=== PATIENT | female | born 1975 | race Two or more races ===

== ENCOUNTER 2016-11-07 05:00 | Inpatient (IN) | payer MEDICAID ==
[~2016-11-07] VITALS: Ht 160 cm; Wt 81.2 kg
[2016-11-07 05:31] VITALS: BP 138/72; Ht 160 cm; Wt 81.2 kg
[2016-11-07 06:57] LABS: HEMATOCRIT 40.4 % (36.0-48.0); HEMOGLOBIN 13.8 g/dL (12-16); MCH 30.3 pg (26.0-34.0); MCHC 34.2 g/dL (31.0-37.0); MCV 88.6 fL (80.0-100.0); MEAN PLATELET VOLUME 13.5 fL (7.4-10.4); RBC 4.56 10x6/uL (4.00-5.40); RDW 15.8 % (11.5-14.5); WBC 10.3 10x3/uL (4.8-10.8)
[2016-11-07 19:13] VITALS: BP 123/79
--- NOTE | 2016-11-07 19:18 | NUR ---
PT RECEIVED TO MY CARE IN ROOM 1257. PT RESTING IN BED IN SEMI-FOWLERS POSITION, VISITING WITH FAMILY, IN NO ACUTE DISTRESS. PT IS A 41YO G3 NOW P3 WITH OF VIABLE FEMALE INFANT TODAY @ 1306. @ 40.5 WKS GESTATION. PT WITH SHOULDER DYSTOCIA RELIEVED WITH MCROBERT'S AND SUPRAPUBIC PRESSURE. PT WITH LACERATION AND REPAIR. AAOX3. HR REGULAR. LUNGS CTAB. ABDOMEN SOFT AND NON TENDER. BS ACTIVE TIMES 4. FUNDUS FIRM AND ML @ U/-1. LOCHIA RUBRA SCANT. PERINIUM APPEARS TO BE INTACT. SANGITA PAD AND PANTIES IN PLACE. PT DENIES DIFFICULTY VOIDING. STATES SHE HAS PASSED GAS SINCE BUT HAS NOT HAD A BM. NO SWELLING NOTED TO UPPER OR LOWER EXTREMITIES BILATERALLY. 18G SL IN LEFT HAND. FLUSHED WITH 5CC NS WITHOUT DIFFICULTY. NO REDNESS OR EDEMA NOTED TO SITE. PT C/O PAIN, RATES 5/10 IN BACK AND PERINIUM. REQUESTS MEDICATION. 1 TAB DEMEROL 50 PROVIDED TO PT AT THIS TIME. PT DENIES ANY FURTHER NEEDS AT THIS TIME. BED IN LOW POSITION, SIDE RAILS UP TIMES 2, CALL LIGHT AND PHONE IN REACH. FAMILY REMAINS AT PT BS TIMES 3 FOR SUPPORT AND ASSISTANCE. REMAINS AT PT BS FOR COUPLET CARE. WILL CONT TO MONITOR PT STATUS.
--- NOTE | 2016-11-07 19:59 | NUR ---
RN TO PT BS FOR ROUNDS. PT RESTING IN BED IN SEMI-FOWLERS POSITION IN NO ACUTE DISTRESS. PT STATES HER PAIN HAS IMPROVED TO 2/10. PT DENIES ANY FURTHER NEEDS AT THIS TIME. BED IN LOW POSITION, SIDE RAILS UP TIMES 2, CALL LIGHT AND PHONE IN REACH. FAMILY REMAINS AT PT BS TIMES 3 FOR SUPPORT AND ASSISTANCE. REMAINS AT PT BS FOR COUPLET CARE. WILL CONT TO MONITOR PT STATUS.
--- NOTE | 2016-11-07 20:53 | NUR ---
RN CALLED TO PT BS. PT REQUESTS FOOD TRAY AND COKE. PROVIDED. PT OFFERED 2100 DOSE OF MOM, REFUSED. STATES SHE IS NAUSEATED. PT DENIES ANY FURTHER NEEDS AT THIS TIME. BED IN LOW POSITION, SIDE RAILS UP TIMES 2, CALL LIGHT AND PHONE IN REACH. INFANT REMAINS AT PT BS FOR COUPLET CARE. WILL CONT TO MONITOR PT STATUS.
--- NOTE | 2016-11-07 22:40 | NUR ---
RN TO PT BS TO TAKE VISTORS TO BS. PT RESTING IN BED IN SEMI-FOWLERS POSITION IN NO ACUTE DISTRESS. PT DENIES ANY NEEDS AT THIS TIME. BED IN LOW POSITION, SIDE RAILS UP TIMES 2, CALL LIGHT AND PHONE IN REACH. INFANT REMAINS AT PT BS FOR COUPLET CARE. WILL CONT TO MONITOR PT STATUS.
--- NOTE | 2016-11-07 23:04 | NUR ---
RN CALLED TO PT BS. PT REQUESTS INFANT BE TAKEN TO NURSERY FOR OBSERVATION FOR NIGHT. INFANT TRANSFERED VIA OPEN CRIB TO NURSERY PER PT REQUEST. REPORT GIVEN TO NURSERY RN. PT DENIES ANY FURTHER NEEDS AT THIS TIME. BED IN LOW POSITION, SIDE RAILS UP TIMES 2, CALL LIGHT AND PHONE IN REACH. WILL CONT TO MONITOR PT STATUS.
--- NOTE | 2016-11-08 01:25 | NUR ---
RN TO PT BS FOR ROUNDS. PT RESTING IN BED IN RIGHT TILT POSITION, WITH EYES CLOSED, IN NO ACUTE DISTRESS. RESPIRATIONS EVEN AND UNLABORED. BED IN LOW POSITION, SIDE RAILS UP TIMES 2, CALL LIGHT AND PHONE IN REACH. WILL CONT TO MONITOR PT STATUS.
--- NOTE | 2016-11-08 04:03 | NUR ---
RN CALLED TO PT BS WITH C/O PAIN. PT RATES PAIN 5/10, REQUESTS MEDICATION. 1 TAB DEMEROL 50MG PROVIDED AT THIS TIME. PT DENIES ANY FURTHER NEEDS. BED IN LOW POSITION, SIDE RAILS UP TIMES 2, CALL LIGHT AND PHONE IN REACH. WILL CONT TO MONITOR PT STATUS.
[2016-11-08 06:14] LABS: RAPID PLASMA REAGIN Non Reactive (Non Reactive)
--- NOTE | 2016-11-08 07:02 | OP ---
PATIENT NAME: SUSAN JACKSON MEDICAL RECORD: [id number] :75 LOCATION:[id number] ADMISSION DATE:11/07/16 SURGEON: CANDIE CHIRINOS MD DATE OF OPERATION: 11/07/2016 Delivery Note Spontaneous vaginal delivery of female weighing 9 pounds 2 ounces, 9 and 9 Apgars, epidural anesthesia. No episiotomy. A first-degree midline laceration repaired using 2-0 chromic suture. A moderate shoulder dystocia was encountered, which responded promptly to suprapubic pressure and rotation with delivery of the posterior shoulder. Spontaneous delivery of intact-appearing placenta. ESTIMATED BLOOD LOSS: 400 cc. COMPLICATIONS: Shoulder dystocia as mentioned and described above. Infant doing well post-delivery. TRANSINT:[id number] Voice Confirmation ID: [id number] DOCUMENT ID: [id number] CANDIE CHIRINOS MD at 0702 CC: [id number] DICTATION DATE: 11/07/16 1324 MACHINERY RIGGER: 11/07/[address] [facility] [address] [place] [address]
[2016-11-08 07:30] VITALS: BP 107/67
--- NOTE | 2016-11-08 07:30 | NUR ---
RECEIVED PT SITTING UP IN BED. AWAKE. AAO X 3. VSS. HRRR WITHOUT AUDIBLE MURMUR. BBS CLEAR. BS X 4. ABDOMEN SOFT/NON-DISTENDED. FUNDUS FIRM AT U/U. RUBRA LOCHIA SMALL AMT. NO CLOTS OR HEAVY BLEEDING PER PT STATES. NEG HOMANS' SIGN. PPP. MILD NON-PITTING EDEMA NOTED TO BLE. SL TO LEFT HAND. SITE CLEAR. PT C/O BACK PAIN OF "7" ON 0-10 PAIN SCALE. PT DENIES NEEDS AT THIS TIME. SR UPX 2. CALL LIGHT IN REACH.
[2016-11-08 07:31] LABS: HEMATOCRIT 40.1 % (36.0-48.0); HEMOGLOBIN 13.6 g/dL (12-16); MCH 30.1 pg (26.0-34.0); MCHC 33.9 g/dL (31.0-37.0); MCV 88.7 fL (80.0-100.0); MEAN PLATELET VOLUME 12.3 fL (7.4-10.4); RBC 4.52 10x6/uL (4.00-5.40); RDW 16.3 % (11.5-14.5); WBC 12.5 10x3/uL (4.8-10.8)
--- NOTE | 2016-11-08 07:45 | NUR ---
DR CHIRINOS ON UNIT. NOTIFIED OF PT PAIN AND IBUPROFEN NOT ORDERED. NEW ORDER RECEIVED.
--- NOTE | 2016-11-08 08:00 | NUR ---
PT GIVEN MOTRIN 600 MG PO ORDERED. PT INSTRUCTED ON MED. VERBALIZES UNDERSTANDING. SL DC'D WITH [facility] INTACT. PRESSURE BANDAGE TO SITE. PT ZENA WELL.
--- NOTE | 2016-11-08 09:38 | NUR ---
PT SITTING UP IN BED. CARING FOR . C/O BACK PAIN OF "4" ON 0-10 PAIN SCALE. DEMEROL 50 MG GIVEN PO ORDERED. PT INSTRUCTED ON MED. VERBALIZES UNDERSTANDING. BOTTLE PROVIDED TO PT AT PT REQUEST TO FEED .
--- NOTE | 2016-11-08 10:20 | NUR ---
PT SITTING UP IN BED. STATES PAIN MED RELIEVED PAIN. DENIES NEEDS OR C/O.
--- NOTE | 2016-11-08 12:00 | NUR ---
PT SITTING UP IN BED. CONSUMING REG DIET. DENIES C/O PAIN OR NEEDS.
--- NOTE | 2016-11-08 13:40 | NUR ---
DR CHIRINOS NOTIFIED OF 'S DISCHARGE ORDER. NEW ORDERS RECEIVED.
--- NOTE | 2016-11-08 13:45 | NUR ---
PT INFORMED OF ORDERS RECEIVED. STATES WILL BE HERE AFTER 5 TO PICK PT AND UP.
[2016-11-08] MEDS ORDERED: MOTRIN600 MG PO (14:23)
--- NOTE | 2016-11-08 16:00 | NUR ---
DISCHARGE INSTRUCTIONS GIVEN TO PT. PT VERBALIZES UNDERSTANDING OF ALL INSTRUCTIONS. COPIES GIVEN TO PT. RX FOR MOTRIN GIVEN TO PT. PT AWAITS 'S DISCHARGE.
--- NOTE | 2016-11-08 17:30 | NUR ---
PT SITTING UP IN BED. CONSUMING REG DIET. DENIES C/O OR NEEDS.
--- NOTE | 2016-11-08 18:25 | NUR ---
PT READY FOR DISCHARGE. DISCHARGED WITH INFANT VIA WHEELCHAIR TO PRIVATE VEHICLE. PT AND ZENA WELL.
== END 2016-11-08 18:25 | disposition home or self-care (01) | DRG 775 ==
LOC: D.LD 05:25
PROVIDERS: Obstetrics & Gynecology; ADMIT Obstetrics & Gynecology
PROC: 10E0XZZ Delivery of Products of Conception, External Approach (ICD-10-PCS; principal; 2016-11-07)
PROC: 0HQ9XZZ Repair Perineum Skin, External Approach (ICD-10-PCS; 2016-11-07)
DX: O66.0 Obstructed labor due to shoulder dystocia (principal); Z3A.39 39 weeks gestation of pregnancy; Z37.0 Single live birth; O70.0 First degree perineal laceration during delivery